=== PATIENT | female | born 1975 | race Hispanic/Latino ===

== ENCOUNTER 2025-07-20 18:53 | Inpatient (IN) | payer BC ==
[2025-07-20] MEDS ORDERED: Cefepime 2 GM VIAL ONE (19:49)
[2025-07-20 19:57] LABS: ALT (SGPT) 8 U/L (Less than 34); AST (SGOT) 12 U/L (11-34); Albumin 4.0 g/dL (3.1-4.5); Alkaline Phosphatase 99 U/L (40-110); Anion Gap 16 mmol/L (10-20); BUN (Urea Nitrogen) 11 mg/dL (9.8-20.1); Bilirubin, Total 0.5 mg/dL (0.3-1.2); Calc. Creatinine Clearance 0 mL/min (70-130); Calcium 9.1 mg/dL (7.8-10.44); Carbon Dioxide 21 mmol/L (22-29); Chloride 101 mmol/L (98-107); Globulin 3.0 g/dL (2.4-3.5); Glucose 139 mg/dL (70-105); Potassium 3.0 mmol/L (3.5-5.1); Sodium 135 mmol/L (136-145)
[2025-07-20] MEDS ORDERED: Acetaminophen 325 MG TAB ONE (19:59)
[2025-07-20 20:03] LABS: Hematocrit 20.0 % (36.0-47.0); Hemoglobin 6.6 g/dL (12.0-16.0); Mean Corpuscular Hemoglobin 30.7 pg (27.0-31.0); Mean Corpuscular Volume 93.0 fL (78.0-98.0); Platelet Count 20 10x3/uL (130-400); Red Blood Cell (RBC) Count 2.15 mill/uL (4.20-5.40); White Blood Cell (WBC) Count 0.78 10x3/uL (4.8-10.8)
[2025-07-20] MEDS ORDERED: Potassium Chloride 20 MEQ (100 mL) BAG ONE (20:08)
[2025-07-20 20:22] LABS: Anisocytosis SLIGHT = 6-15 cells HPF (0-5); Plasma Cells 2 % (0-0); Platelet Adequacy Comment Platelets Decreased; Polychromasia SLIGHT = 2-3 cells HPF (0-2); Smudge Cells 0.9 %; Stomatocytes SLIGHT = 2-5 cells HPF (0-1)
[2025-07-20 20:33] LABS: Bacteria/HPF None Seen HPF (None Seen); CAUTI Indications for Culture Immunosuppressed; Glucose, Urine (Dipstick) Normal (Negative); Leukocyte Negative Leu/uL (Negative); Protein, Urine (Dipstick) 50 mg/dL (Neg-Trace); Specific Gravity, Urine 1.023 (1.002-1.036); WBC/HPF 0-3 HPF (0-3)
[2025-07-20 20:35] LABS: Urine Culture Reflex Yes Yes
[2025-07-20] MEDS: Vancomycin (BATCH) 2 GM Premix IVPB SCH (22:15)
[2025-07-20 22:44] LABS: Magnesium 1.7 mg/dL (1.6-2.6)
[2025-07-20 22:59] LABS: Actual Bicarbonate (HCO3v) 20.0 mEq/L (22-28); Base Excess -3.9 mEq/L (-2.0 to +3.0); Calcium, Ionized (venous) 0.98 mmol/L (1.16-1.32); Chloride (VBG) 110 mmol/L (98-106); Hematocrit-VBG 17 % (36.0-47.0); Sodium 137 mmol/L (133-146)
[2025-07-20 23:00] LABS: Hemoglobin (Hb) 5.8 g/dL (11.7-16.0); Potassium (VBG) 2.63 mmol/L (3.70-5.30)
[2025-07-21] MEDS: NS IVPB SCH (00:50)
[2025-07-21] MEDS: POTASSIUM PHOSPHATE 30 MMOL IVPB SCH (00:50)
[2025-07-21 01:11] VITALS: BMI 32.3
[2025-07-21] MEDS: Magnesium 2 GM/50 ML(in water) 2 GM in Premix 1 BAG IVPB SCH (01:55)
[2025-07-21] MEDS: NS 0.9% w/ 20 MEQ KCL 1,000 ML/1,000 ML BAG IV SCH (02:05)
[2025-07-21] MEDS ORDERED: Calcium Carbonate 500 MG ChewTAB PO PRN (05:00)
[2025-07-21] MEDS ORDERED: Acetaminophen 325 MG TAB PO PRN (05:00)
[2025-07-21] MEDS ORDERED: Vancomycin 1 GM in Premix 1 BAG IVPB SCH (09:00)
[2025-07-21] MEDS: Vancomycin 1.25 GM / NS 250 ML VIAL-2-BAG IVPB SCH (09:21)
[2025-07-21] MEDS: Senokot S 8.6-50 MG TAB PO SCH (09:21)
[2025-07-21 12:10] LABS: Hematocrit 21.2 % (36.0-47.0); Hemoglobin 6.8 g/dL (12.0-16.0); Mean Corpuscular Hemoglobin 31.1 pg (27.0-31.0); Mean Corpuscular Volume 96.8 fL (78.0-98.0); Platelet Count 18 10x3/uL (130-400); Red Blood Cell (RBC) Count 2.19 mill/uL (4.20-5.40); White Blood Cell (WBC) Count 3.46 10x3/uL (4.8-10.8)
[2025-07-21 12:39] LABS: Anion Gap 12 mmol/L (10-20); BUN (Urea Nitrogen) 5 mg/dL (9.8-20.1); Calc. Creatinine Clearance 205 mL/min (70-130); Calcium 8.4 mg/dL (7.8-10.44); Carbon Dioxide 20 mmol/L (22-29); Chloride 106 mmol/L (98-107); Glucose 102 mg/dL (70-105); Magnesium 1.9 mg/dL (1.6-2.6); Potassium 3.5 mmol/L (3.5-5.1); Sodium 134 mmol/L (136-145)
[2025-07-21 12:40] LABS: Anisocytosis SLIGHT = 6-15 cells HPF (0-5); Burr Cells SLIGHT = 2-5 cells HPF (0-1); Macrocytosis MODERATE=16-30 cells HPF (0-5); Platelet Adequacy Comment Significant Decrease; Polychromasia SLIGHT = 2-3 cells HPF (0-2); Smudge Cells 9.6 %
[2025-07-21 13:03] LABS: CRP, High Sensitivity at Bryan 8.57 mg/dL (< or = 0.5)
[2025-07-21 13:54] VITALS: BMI 32.3
[2025-07-21] MEDS: PHOS-NAK 1 PKT PACK PO SCH (14:31)
[2025-07-21] MEDS: Potassium Phosphate 30 MMOL in Sodium Chloride 0.9% 250 ML 250 ML IVPB SCH (15:30)
[2025-07-21 23:24] LABS: Hematocrit 20.8 % (36.0-47.0); Hemoglobin 6.9 g/dL (12.0-16.0); Mean Corpuscular Hemoglobin 32.1 pg (27.0-31.0); Mean Corpuscular Volume 96.7 fL (78.0-98.0); Platelet Count 41 10x3/uL (130-400); Red Blood Cell (RBC) Count 2.15 mill/uL (4.20-5.40); White Blood Cell (WBC) Count 6.71 10x3/uL (4.8-10.8)
[2025-07-21 23:37] LABS: Anion Gap 15 mmol/L (10-20); BUN (Urea Nitrogen) 6 mg/dL (9.8-20.1); Calc. Creatinine Clearance 205 mL/min (70-130); Calcium 8.7 mg/dL (7.8-10.44); Carbon Dioxide 18 mmol/L (22-29); Chloride 105 mmol/L (98-107); Glucose 90 mg/dL (70-105); Potassium 3.6 mmol/L (3.5-5.1); Sodium 134 mmol/L (136-145)
[2025-07-22] MEDS: Mupirocin 1 GM TUBE NASAL DECOLONIZATION TP SCH (03:36)
[2025-07-22] MEDS: Mupirocin 1 GM TUBE NASAL DECOLOIZATION TP SCH (13:28)
[2025-07-22 17:42] LABS: Hematocrit 25.8 % (36.0-47.0); Hemoglobin 8.4 g/dL (12.0-16.0); Mean Corpuscular Hemoglobin 31.3 pg (27.0-31.0); Mean Corpuscular Volume 96.3 fL (78.0-98.0); Platelet Count 60 10x3/uL (130-400); Red Blood Cell (RBC) Count 2.68 mill/uL (4.20-5.40); White Blood Cell (WBC) Count 10.54 10x3/uL (4.8-10.8)
[2025-07-22 17:59] LABS: Vancomycin, Random 14.5 ug/mL (See Comment)
[2025-07-22 18:01] LABS: Anisocytosis SLIGHT = 6-15 cells HPF (0-5); Burr Cells SLIGHT = 2-5 cells HPF (0-1); Nucleated RBC (Manual Ct) 1 % (0); Platelet Adequacy Comment Platelets Decreased; Polychromasia SLIGHT = 2-3 cells HPF (0-2); Smudge Cells 3.0 %
[2025-07-22 18:02] LABS: Anion Gap 14 mmol/L (10-20); BUN (Urea Nitrogen) 8 mg/dL (9.8-20.1); Calc. Creatinine Clearance 177 mL/min (70-130); Calcium 9.2 mg/dL (7.8-10.44); Carbon Dioxide 20 mmol/L (22-29); Chloride 104 mmol/L (98-107); Glucose 120 mg/dL (70-105); Magnesium 1.8 mg/dL (1.6-2.6); Potassium 3.1 mmol/L (3.5-5.1); Sodium 135 mmol/L (136-145)
[2025-07-22] MEDS: PHOS-NAK 1 PKT PACK PO SCH (20:14)
[2025-07-22] MEDS: Magnesium 2 GM/50 ML(in water) 2 GM in Premix 1 BAG IVPB SCH (23:21)
[2025-07-23 06:42] LABS: Anion Gap 11 mmol/L (10-20); BUN (Urea Nitrogen) 6 mg/dL (9.8-20.1); Calc. Creatinine Clearance 190 mL/min (70-130); Calcium 8.7 mg/dL (7.8-10.44); Carbon Dioxide 23 mmol/L (22-29); Chloride 104 mmol/L (98-107); Glucose 90 mg/dL (70-105); Potassium 3.2 mmol/L (3.5-5.1); Sodium 135 mmol/L (136-145)
[2025-07-23 06:54] LABS: Hematocrit 23.8 % (36.0-47.0); Hemoglobin 7.8 g/dL (12.0-16.0); Mean Corpuscular Hemoglobin 31.2 pg (27.0-31.0); Mean Corpuscular Volume 95.2 fL (78.0-98.0); Platelet Count 61 10x3/uL (130-400); Red Blood Cell (RBC) Count 2.50 mill/uL (4.20-5.40); White Blood Cell (WBC) Count 7.53 10x3/uL (4.8-10.8)
[2025-07-23 08:08] LABS: Anisocytosis SLIGHT = 6-15 cells HPF (0-5); Macrocytosis SLIGHT = 6-15 cells HPF (0-5); Platelet Adequacy Comment Platelets Decreased; Polychromasia SLIGHT = 2-3 cells HPF (0-2); RBC Morphology Within Normal Limits
[2025-07-23] MEDS: Vancomycin 1.25 GM / NS 250 ML VIAL-2-BAG IVPB SCH (23:15)
[2025-07-24 07:59] LABS: Hematocrit 23.6 % (36.0-47.0); Hemoglobin 7.6 g/dL (12.0-16.0); Mean Corpuscular Hemoglobin 31.1 pg (27.0-31.0); Mean Corpuscular Volume 96.7 fL (78.0-98.0); Platelet Count 83 10x3/uL (130-400); Red Blood Cell (RBC) Count 2.44 mill/uL (4.20-5.40); White Blood Cell (WBC) Count 6.74 10x3/uL (4.8-10.8)
[2025-07-24 08:06] LABS: Anion Gap 10 mmol/L (10-20); BUN (Urea Nitrogen) 7 mg/dL (9.8-20.1); Calc. Creatinine Clearance 210 mL/min (70-130); Calcium 8.8 mg/dL (7.8-10.44); Carbon Dioxide 25 mmol/L (22-29); Chloride 103 mmol/L (98-107); Glucose 92 mg/dL (70-105); Potassium 3.4 mmol/L (3.5-5.1); Sodium 135 mmol/L (136-145)
[2025-07-24] MEDS: Vancomycin 1 GM in Premix 1 BAG IVPB SCH (09:37)
[2025-07-24 10:35] LABS: Anisocytosis SLIGHT = 6-15 cells HPF (0-5); Macrocytosis SLIGHT = 6-15 cells HPF (0-5); Platelet Adequacy Comment Platelets Decreased; Polychromasia SLIGHT = 2-3 cells HPF (0-2); Schistocytes SLIGHT = 2-5 cells HPF (0-1); Smudge Cells 5.8 %; Stomatocytes SLIGHT = 2-5 cells HPF (0-1); Toxic Granulation SLIGHT
[2025-07-25 06:35] LABS: Vancomycin, Random 13.7 ug/mL (See Comment)
[2025-07-26 07:37] VITALS: BP 102/59; TEMP 98.2
== END 2025-07-26 10:55 | disposition home or self-care (01) | DRG 808 ==
LOC: ERS 18:53 → UNDOADMIN 23:25 → 2NO 23:25
PROVIDERS: ADMIT Internal Medicine; ATTEND Internal Medicine
PROC: 3E03329 Introduction of Other Anti-infective into Peripheral Vein, Percutaneous Approach (ICD-10-PCS; principal; 2025-07-20)
PROC: 3E04329 Introduction of Other Anti-infective into Central Vein, Percutaneous Approach (ICD-10-PCS; 2025-07-20)
PROC: 6A550Z2 Pheresis of Platelets, Single (ICD-10-PCS; 2025-07-21)
PROC: 30233N1 Transfusion of Nonautologous Red Blood Cells into Peripheral Vein, Percutaneous Approach (ICD-10-PCS; 2025-07-21)
DX: D70.9 Neutropenia, unspecified (principal); A41.9 Sepsis, unspecified organism; R65.20 Severe sepsis without septic shock; E87.1 Hypo-osmolality and hyponatremia; E87.20 Acidosis, unspecified; C22.9 Malignant neoplasm of liver, not specified as primary or secondary; C64.9 Malignant neoplasm of unspecified kidney, except renal pelvis; D61.810 Antineoplastic chemotherapy induced pancytopenia; G89.4 Chronic pain syndrome; E88.09 Other disorders of plasma-protein metabolism, not elsewhere classified; E83.42 Hypomagnesemia; E87.6 Hypokalemia
CPT/HCPCS: 36415; 36430; 71045; 80048; 80053; 80202; 81001; 82805; 83605; 83735; 83880; 84100; 84484; 85025; 86141; 86850; 86900; 86901; 87040; 87081; 87086; 93005; 94760; 96365; 96366; 96367; J0692; J3373; J3475; J3480; J7050; P9016; P9035

== ENCOUNTER 2025-08-10 12:32 | Inpatient (IN) | payer BC ==
[2025-08-10] MEDS ORDERED: Cefepime 2 GM VIAL ONE (13:16)
[2025-08-10] MEDS ORDERED: Acetaminophen 325 MG TAB ONE (13:16)
[2025-08-10 13:48] LABS: #Basophils Less than 0.03 10x3/uL (0.0-0.2); #Eosinophils Less than 0.03 10x3/uL (0.0-0.7); #Monocytes 0.16 10x3/uL (0.11-0.59); #Neutrophils Less than 0.03 10x3/uL (1.40-6.50); %Basophils 0.0 % (0.0-1.0); %Eosinophils 0.0 % (0.0-10.0); %Lymphocytes 45.7 % (21.0-51.0); %Monocytes 45.7 % (0.0-10.0); %Neutrophils 5.7 % (42.0-75.0); Hematocrit 18.9 % (36.0-47.0); Hemoglobin 6.4 g/dL (12.0-16.0); INR-International Normal Ratio 1.6; Mean Corpuscular Hemoglobin 31.5 pg (27.0-31.0); Mean Corpuscular Volume 94.1 fL (78.0-98.0); Platelet Count 9 10x3/uL (130-400); Prothrombin Time 19.3 sec (12.0-14.7); Red Blood Cell (RBC) Count 2.03 mill/uL (4.20-5.40); White Blood Cell (WBC) Count 0.35 10x3/uL (4.8-10.8)
[2025-08-10 13:49] LABS: PTT 51.5 sec (22.9-36.1)
[2025-08-10 13:56] LABS: ALT (SGPT) 10 U/L (Less than 34); AST (SGOT) 24 U/L (11-34); Albumin 3.9 g/dL (3.1-4.5); Alkaline Phosphatase 76 U/L (40-110); Anion Gap 13 mmol/L (10-20); BUN (Urea Nitrogen) 13 mg/dL (9.8-20.1); Bilirubin, Total 1.0 mg/dL (0.3-1.2); Calc. Creatinine Clearance 0 mL/min (70-130); Calcium 8.8 mg/dL (7.8-10.44); Carbon Dioxide 22 mmol/L (22-29); Chloride 100 mmol/L (98-107); Globulin 3.0 g/dL (2.4-3.5); Glucose 111 mg/dL (70-105); Potassium 2.9 mmol/L (3.5-5.1); Sodium 132 mmol/L (136-145)
[2025-08-10 14:16] LABS: Bacteria/HPF None Seen HPF (None Seen); CAUTI Indications for Culture Dysuria,urgency,freq; Glucose, Urine (Dipstick) 30 mg/dL (Negative); Leukocyte Negative Leu/uL (Negative); Protein, Urine (Dipstick) 200 mg/dL (Neg-Trace); RBC/HPF Greater than 50 HPF (0-3); Specific Gravity, Urine 1.022 (1.002-1.036)
[2025-08-10 14:20] LABS: Urine Culture Reflex No No
[2025-08-10] MEDS ORDERED: Calcium Carbonate 500 MG ChewTAB PO PRN (16:06)
[2025-08-10] MEDS ORDERED: Acetaminophen 325 MG TAB PO PRN (16:06)
[2025-08-10 18:17] LABS: Magnesium 1.7 mg/dL (1.6-2.6)
[2025-08-10] MEDS: VANCOMYCIN 1.75 GM/350 ML Premix BAG IVPB SCH (18:27)
[2025-08-10] MEDS: NS 0.9% w/ 20 MEQ KCL 1,000 ML/1,000 ML BAG IV SCH (18:34)
[2025-08-10 18:40] VITALS: BMI 30.6
[2025-08-10] MEDS ORDERED: Vancomycin 1 GM in Sodium Chloride 0.9% 250 ML 300 ML IVPB SCH (21:00)
[2025-08-10] MEDS: Famotidine 20 MG TAB PO SCH (21:56)
[2025-08-10] MEDS: PHOS-NAK 1 PKT PACK PO SCH (21:56)
[2025-08-10] MEDS: Ondansetron PF 4 MG/2 ML Vial IVP PRN (22:05)
[2025-08-11] MEDS: Vancomycin 1 GM in Premix 1 BAG IVPB SCH (01:33)
[2025-08-11 05:34] LABS: Vancomycin, Random 20.4 ug/mL (See Comment)
[2025-08-11 05:37] LABS: Anion Gap 9 mmol/L (10-20); BUN (Urea Nitrogen) 9 mg/dL (9.8-20.1); Calc. Creatinine Clearance 162 mL/min (70-130); Calcium 8.4 mg/dL (7.8-10.44); Carbon Dioxide 24 mmol/L (22-29); Chloride 105 mmol/L (98-107); Glucose 93 mg/dL (70-105); Potassium 3.7 mmol/L (3.5-5.1); Sodium 134 mmol/L (136-145)
[2025-08-11 05:49] LABS: #Basophils Less than 0.03 10x3/uL (0.0-0.2); #Eosinophils Less than 0.03 10x3/uL (0.0-0.7); #Monocytes 0.32 10x3/uL (0.11-0.59); #Neutrophils 0.32 10x3/uL (1.40-6.50); %Basophils 1.1 % (0.0-1.0); %Eosinophils 0.0 % (0.0-10.0); %Lymphocytes 22.0 % (21.0-51.0); %Monocytes 35.2 % (0.0-10.0); %Neutrophils 35.1 % (42.0-75.0); Hematocrit 17.2 % (36.0-47.0); Hemoglobin 5.8 g/dL (12.0-16.0); Mean Corpuscular Hemoglobin 31.7 pg (27.0-31.0); Mean Corpuscular Volume 94.0 fL (78.0-98.0); Platelet Count 33 10x3/uL (130-400); Red Blood Cell (RBC) Count 1.83 mill/uL (4.20-5.40); White Blood Cell (WBC) Count 0.91 10x3/uL (4.8-10.8)
[2025-08-11] MEDS: Vancomycin 1.25 GM / NS 250 ML VIAL-2-BAG IVPB SCH (12:27)
[2025-08-11] MEDS ORDERED: Loperamide HCl 1 MG/7.5 ML UDCUP PO PRN (16:05)
[2025-08-11 17:05] LABS: Iron 79 ug/dL (50-170); Iron Binding Capacity, Total 115 mcg/dL (265-497)
[2025-08-11 19:57] LABS: Hematocrit 21.2 % (36.0-47.0); Hemoglobin 7.0 g/dL (12.0-16.0); Platelet Count 23 10x3/uL (130-400)
[2025-08-12 05:53] LABS: Hematocrit 23.1 % (36.0-47.0); Hemoglobin 7.8 g/dL (12.0-16.0); Mean Corpuscular Hemoglobin 30.5 pg (27.0-31.0); Mean Corpuscular Volume 90.2 fL (78.0-98.0); Platelet Count 24 10x3/uL (130-400); Red Blood Cell (RBC) Count 2.56 mill/uL (4.20-5.40); White Blood Cell (WBC) Count 4.27 10x3/uL (4.8-10.8)
[2025-08-12 05:54] LABS: ALT (SGPT) Less than 7 U/L (Less than 34); AST (SGOT) 15 U/L (11-34); Albumin 3.3 g/dL (3.1-4.5); Alkaline Phosphatase 68 U/L (40-110); Anion Gap 13 mmol/L (10-20); BUN (Urea Nitrogen) 8 mg/dL (9.8-20.1); Bilirubin, Total 1.9 mg/dL (0.3-1.2); Calc. Creatinine Clearance 178 mL/min (70-130); Calcium 8.7 mg/dL (7.8-10.44); Carbon Dioxide 19 mmol/L (22-29); Chloride 107 mmol/L (98-107); Globulin 3.3 g/dL (2.4-3.5); Glucose 100 mg/dL (70-105); Magnesium 1.7 mg/dL (1.6-2.6); Potassium 3.1 mmol/L (3.5-5.1); Sodium 136 mmol/L (136-145)
[2025-08-12 06:22] LABS: Anisocytosis SLIGHT = 6-15 cells HPF (0-5); Platelet Adequacy Comment Platelets Decreased; Polychromasia SLIGHT = 2-3 cells HPF (0-2)
[2025-08-12] MEDS: Magnesium 2 GM/50 ML(in water) 2 GM in Premix 1 BAG IVPB SCH (08:58)
[2025-08-12 14:27] LABS: Potassium 3.1 mmol/L (3.5-5.1)
[2025-08-12 16:11] VITALS: BMI 30.6
[2025-08-13 06:05] LABS: #Basophils 0.03 10x3/uL (0.0-0.2); #Eosinophils Less than 0.03 10x3/uL (0.0-0.7); #Monocytes 0.53 10x3/uL (0.11-0.59); #Neutrophils 2.93 10x3/uL (1.40-6.50); %Basophils 0.8 % (0.0-1.0); %Eosinophils 0.0 % (0.0-10.0); %Lymphocytes 7.0 % (21.0-51.0); %Monocytes 13.8 % (0.0-10.0); %Neutrophils 76.6 % (42.0-75.0); Hematocrit 23.0 % (36.0-47.0); Hemoglobin 7.8 g/dL (12.0-16.0); Mean Corpuscular Hemoglobin 31.2 pg (27.0-31.0); Mean Corpuscular Volume 92.0 fL (78.0-98.0); Platelet Count 19 10x3/uL (130-400); Red Blood Cell (RBC) Count 2.50 mill/uL (4.20-5.40); White Blood Cell (WBC) Count 3.83 10x3/uL (4.8-10.8)
[2025-08-13 06:10] LABS: Anion Gap 14 mmol/L (10-20); BUN (Urea Nitrogen) 7 mg/dL (9.8-20.1); Calc. Creatinine Clearance 182 mL/min (70-130); Calcium 8.8 mg/dL (7.8-10.44); Carbon Dioxide 21 mmol/L (22-29); Chloride 107 mmol/L (98-107); Glucose 88 mg/dL (70-105); Magnesium 2.1 mg/dL (1.6-2.6); Potassium 3.6 mmol/L (3.5-5.1); Sodium 138 mmol/L (136-145)
[2025-08-14 06:28] LABS: Hematocrit 22.1 % (36.0-47.0); Hemoglobin 7.3 g/dL (12.0-16.0); Mean Corpuscular Hemoglobin 30.5 pg (27.0-31.0); Mean Corpuscular Volume 92.5 fL (78.0-98.0); Platelet Count 22 10x3/uL (130-400); Red Blood Cell (RBC) Count 2.39 mill/uL (4.20-5.40); White Blood Cell (WBC) Count 3.83 10x3/uL (4.8-10.8)
[2025-08-14 06:39] LABS: Vancomycin, Random 18.7 ug/mL (See Comment)
[2025-08-14 06:44] LABS: Anisocytosis SLIGHT = 6-15 cells HPF (0-5); Platelet Adequacy Comment Platelets Decreased; Polychromasia SLIGHT = 2-3 cells HPF (0-2)
[2025-08-14 06:46] LABS: Anion Gap 12 mmol/L (10-20); BUN (Urea Nitrogen) 6 mg/dL (9.8-20.1); Calc. Creatinine Clearance 191 mL/min (70-130); Carbon Dioxide 24 mmol/L (22-29); Chloride 107 mmol/L (98-107); Potassium 3.4 mmol/L (3.5-5.1); Sodium 140 mmol/L (136-145)
[2025-08-14 06:47] LABS: Calcium 8.9 mg/dL (7.8-10.44); Glucose 93 mg/dL (70-105)
[2025-08-15 16:36] VITALS: BP 106/63; TEMP 98.6
== END 2025-08-15 16:20 | disposition home or self-care (01) | DRG 871 ==
LOC: ERS 12:32 → MSONC 16:01
PROVIDERS: ADMIT Family Medicine; ATTEND Hospitalist
PROC: 30233N1 Transfusion of Nonautologous Red Blood Cells into Peripheral Vein, Percutaneous Approach (ICD-10-PCS; principal; 2025-08-10)
PROC: 6A550Z2 Pheresis of Platelets, Single (ICD-10-PCS; 2025-08-10)
PROC: 3E03329 Introduction of Other Anti-infective into Peripheral Vein, Percutaneous Approach (ICD-10-PCS; 2025-08-10)
PROC: 0D9670Z Drainage of Stomach with Drainage Device, Via Natural or Artificial Opening (ICD-10-PCS; 2025-08-10)
PROC: 3E04329 Introduction of Other Anti-infective into Central Vein, Percutaneous Approach (ICD-10-PCS; 2025-08-10)
DX: A41.59 Other Gram-negative sepsis (principal); D61.810 Antineoplastic chemotherapy induced pancytopenia; C64.9 Malignant neoplasm of unspecified kidney, except renal pelvis; E87.1 Hypo-osmolality and hyponatremia; C22.4 Other sarcomas of liver; N39.0 Urinary tract infection, site not specified; R65.20 Severe sepsis without septic shock; G89.4 Chronic pain syndrome; E87.6 Hypokalemia; E83.39 Other disorders of phosphorus metabolism; R19.7 Diarrhea, unspecified; T45.1X5A Adverse effect of antineoplastic and immunosuppressive drugs, initial encounter; Z79.01 Long term (current) use of anticoagulants; Z79.899 Other long term (current) drug therapy; Z86.711 Personal history of pulmonary embolism
CPT/HCPCS: 36415; 36430; 71045; 80048; 80053; 80202; 81001; 82728; 83540; 83550; 83605; 83615; 83735; 84100; 84145; 85025; 85046; 85610; 85730; 86850; 86900; 86901; 87040; 87077; 87081; 87086; 87186; 87428; 93005; 96361; 96365; 96366; 96367; J0692; J3373; J3375; J3475; J3480; J7050; P9016; P9035

== ENCOUNTER 2025-09-02 16:28 | Inpatient (IN) | payer BC ==
[2025-09-02 18:09] LABS: Hematocrit 18.7 % (36.0-47.0); Hemoglobin 6.4 g/dL (12.0-16.0); Mean Corpuscular Hemoglobin 30.8 pg (27.0-31.0); Mean Corpuscular Volume 89.9 fL (78.0-98.0); Platelet Count 6 10x3/uL (130-400); Red Blood Cell (RBC) Count 2.08 mill/uL (4.20-5.40); White Blood Cell (WBC) Count 4.53 10x3/uL (4.8-10.8)
[2025-09-02 18:12] LABS: INR-International Normal Ratio 1.1; Prothrombin Time 14.7 sec (12.0-14.7)
[2025-09-02 18:13] LABS: ALT (SGPT) 7 U/L (Less than 34); AST (SGOT) 14 U/L (11-34); Albumin 3.7 g/dL (3.1-4.5); Alkaline Phosphatase 85 U/L (40-110); Anion Gap 16 mmol/L (10-20); BUN (Urea Nitrogen) 15 mg/dL (9.8-20.1); Bilirubin, Total 1.0 mg/dL (0.3-1.2); Calc. Creatinine Clearance 0 mL/min (70-130); Calcium 9.4 mg/dL (7.8-10.44); Carbon Dioxide 24 mmol/L (22-29); Chloride 100 mmol/L (98-107); Globulin 3.6 g/dL (2.4-3.5); Glucose 117 mg/dL (70-105); Potassium 2.8 mmol/L (3.5-5.1); Sodium 137 mmol/L (136-145)
[2025-09-02 18:13] LABS: PTT 37.7 sec (22.9-36.1)
[2025-09-02 18:31] LABS: Anisocytosis SLIGHT = 6-15 cells HPF (0-5); Ovalocytes SLIGHT = 2-5 cells HPF (0-1); Platelet Adequacy Comment Significant Decrease; Polychromasia SLIGHT = 2-3 cells HPF (0-2); Smudge Cells 2.0 %
[2025-09-02] MEDS ORDERED: Senokot S 8.6-50 MG TAB PO PRN (20:47)
[2025-09-02] MEDS ORDERED: Acetaminophen 325 MG TAB PO PRN (20:50)
[2025-09-02] MEDS ORDERED: Cefepime 2 GM VIAL ONE (20:58)
[2025-09-02 21:19] LABS: CAUTI Indications for Culture Dysuria,urgency,freq; Glucose, Urine (Dipstick) Normal (Negative); Leukocyte Negative Leu/uL (Negative); Protein, Urine (Dipstick) 30 mg/dL (Neg-Trace); RBC/HPF Greater than 50 HPF (0-3); Specific Gravity, Urine 1.025 (1.002-1.036)
[2025-09-02 21:20] LABS: Bacteria/HPF Rare-Few HPF (None Seen)
[2025-09-02 21:21] LABS: Urine Culture Reflex Yes Yes
[2025-09-03 00:48] VITALS: BMI 31.6
[2025-09-03] MEDS: Sodium Bicarbonate Tab 325 MG TAB PO SCH (01:18)
[2025-09-03] MEDS: Potassium Bicarbonate/Cit Ac 20 MEQ TAB PO SCH (01:19)
[2025-09-03] MEDS: Famotidine 20 MG TAB PO SCH (01:24)
[2025-09-03 05:41] LABS: Hematocrit 20.7 % (36.0-47.0); Hemoglobin 6.8 g/dL (12.0-16.0); Mean Corpuscular Hemoglobin 30.2 pg (27.0-31.0); Mean Corpuscular Volume 92.0 fL (78.0-98.0); Platelet Count 47 10x3/uL (130-400); Red Blood Cell (RBC) Count 2.25 mill/uL (4.20-5.40); White Blood Cell (WBC) Count 6.01 10x3/uL (4.8-10.8)
[2025-09-03 05:50] LABS: Anion Gap 15 mmol/L (10-20); BUN (Urea Nitrogen) 11 mg/dL (9.8-20.1); Calc. Creatinine Clearance 191 mL/min (70-130); Calcium 8.7 mg/dL (7.8-10.44); Carbon Dioxide 22 mmol/L (22-29); Chloride 102 mmol/L (98-107); Glucose 93 mg/dL (70-105); Potassium 3.4 mmol/L (3.5-5.1); Sodium 136 mmol/L (136-145)
[2025-09-03 06:10] LABS: Platelet Adequacy Comment Platelets Decreased; Polychromasia SLIGHT = 2-3 cells HPF (0-2); RBC Morphology Within Normal Limits; Smudge Cells 5.9 %; Toxic Granulation SLIGHT
[2025-09-03] MEDS: Ondansetron PF 4 MG/2 ML Vial IVP PRN (10:37)
[2025-09-03] MEDS: Potassium Chloride 20 MEQ in Premix 1 BAG IVPB SCH (16:48)
[2025-09-04 06:38] LABS: Anion Gap 9 mmol/L (10-20); BUN (Urea Nitrogen) 8 mg/dL (9.8-20.1); Calc. Creatinine Clearance 206 mL/min (70-130); Calcium 9.0 mg/dL (7.8-10.44); Carbon Dioxide 25 mmol/L (22-29); Chloride 107 mmol/L (98-107); Glucose 91 mg/dL (70-105); Magnesium 1.6 mg/dL (1.6-2.6); Potassium 3.9 mmol/L (3.5-5.1); Sodium 137 mmol/L (136-145)
[2025-09-04 06:54] LABS: #Basophils Less than 0.03 10x3/uL (0.0-0.2); #Eosinophils Less than 0.03 10x3/uL (0.0-0.7); #Monocytes 0.53 10x3/uL (0.11-0.59); #Neutrophils 2.99 10x3/uL (1.40-6.50); %Basophils 0.5 % (0.0-1.0); %Eosinophils 0.0 % (0.0-10.0); %Lymphocytes 10.8 % (21.0-51.0); %Monocytes 13.1 % (0.0-10.0); %Neutrophils 73.6 % (42.0-75.0); Hematocrit 20.3 % (36.0-47.0); Hemoglobin 6.7 g/dL (12.0-16.0); Mean Corpuscular Hemoglobin 29.5 pg (27.0-31.0); Mean Corpuscular Volume 89.4 fL (78.0-98.0); Platelet Count 17 10x3/uL (130-400); Red Blood Cell (RBC) Count 2.27 mill/uL (4.20-5.40); White Blood Cell (WBC) Count 4.06 10x3/uL (4.8-10.8)
[2025-09-04 16:46] VITALS: BMI 31.6
[2025-09-04] MEDS: cefTRIAXone\\ROCEPHIN 2 GM in Sodium Chloride 0.9% 100 ML IVPB SCH (20:50)
[2025-09-04 21:15] LABS: Hematocrit 22.5 % (36.0-47.0); Hemoglobin 7.5 g/dL (12.0-16.0)
[2025-09-05 06:42] LABS: Hematocrit 22.3 % (36.0-47.0); Hemoglobin 7.2 g/dL (12.0-16.0); Mean Corpuscular Hemoglobin 28.8 pg (27.0-31.0); Mean Corpuscular Volume 89.2 fL (78.0-98.0); Platelet Count 13 10x3/uL (130-400); Red Blood Cell (RBC) Count 2.50 mill/uL (4.20-5.40); White Blood Cell (WBC) Count 3.95 10x3/uL (4.8-10.8)
[2025-09-05 06:43] LABS: Anion Gap 13 mmol/L (10-20); BUN (Urea Nitrogen) 7 mg/dL (9.8-20.1); Calc. Creatinine Clearance 191 mL/min (70-130); Calcium 9.2 mg/dL (7.8-10.44); Carbon Dioxide 23 mmol/L (22-29); Chloride 105 mmol/L (98-107); Glucose 91 mg/dL (70-105); Potassium 3.7 mmol/L (3.5-5.1); Sodium 137 mmol/L (136-145)
[2025-09-05 06:56] LABS: Platelet Adequacy Comment Significant Decrease; RBC Morphology Within Normal Limits; Smudge Cells 3.0 %
[2025-09-05] MEDS: Mupirocin 1 GM TUBE TP SCH (09:50)
[2025-09-06 06:02] LABS: Hematocrit 21.7 % (36.0-47.0); Hemoglobin 7.1 g/dL (12.0-16.0); Mean Corpuscular Hemoglobin 29.3 pg (27.0-31.0); Mean Corpuscular Volume 89.7 fL (78.0-98.0); Platelet Count 26 10x3/uL (130-400); Red Blood Cell (RBC) Count 2.42 mill/uL (4.20-5.40); White Blood Cell (WBC) Count 3.83 10x3/uL (4.8-10.8)
[2025-09-06 06:43] LABS: Anisocytosis SLIGHT = 6-15 cells HPF (0-5); Dohle Bodies SLIGHT; Macrocytosis SLIGHT = 6-15 cells HPF (0-5); Platelet Adequacy Comment Significant Decrease; Polychromasia SLIGHT = 2-3 cells HPF (0-2); Smudge Cells 1.0 %; Toxic Granulation SLIGHT
[2025-09-06 12:01] VITALS: BP 101/68; TEMP 98.6
== END 2025-09-06 11:45 | disposition home or self-care (01) | DRG 808 ==
LOC: ERS 16:28 → SURG A 20:08
PROVIDERS: ADMIT Internal Medicine; ATTEND Hospitalist
PROC: 3E04329 Introduction of Other Anti-infective into Central Vein, Percutaneous Approach (ICD-10-PCS; principal; 2025-09-02)
PROC: 30233N1 Transfusion of Nonautologous Red Blood Cells into Peripheral Vein, Percutaneous Approach (ICD-10-PCS; 2025-09-02)
PROC: 6A551Z2 Pheresis of Platelets, Multiple (ICD-10-PCS; 2025-09-03)
DX: D61.810 Antineoplastic chemotherapy induced pancytopenia (principal); A41.51 Sepsis due to Escherichia coli [E. coli]; R65.21 Severe sepsis with septic shock; A41.59 Other Gram-negative sepsis; C22.8 Malignant neoplasm of liver, primary, unspecified as to type; C79.00 Secondary malignant neoplasm of unspecified kidney and renal pelvis; N39.0 Urinary tract infection, site not specified; D84.9 Immunodeficiency, unspecified; R04.0 Epistaxis; G89.29 Other chronic pain; T45.1X5A Adverse effect of antineoplastic and immunosuppressive drugs, initial encounter; E87.6 Hypokalemia; B96.20 Unspecified Escherichia coli [E. coli] as the cause of diseases classified elsewhere; B96.4 Proteus (mirabilis) (morganii) as the cause of diseases classified elsewhere; R31.9 Hematuria, unspecified; Z86.711 Personal history of pulmonary embolism; Z79.01 Long term (current) use of anticoagulants
CPT/HCPCS: 36415; 36430; 80048; 80053; 81001; 83605; 83735; 84484; 85025; 85610; 85730; 86850; 86900; 86901; 87040; 87077; 87086; 87186; 93005; 96365; J0692; J0696; J2405; J3480; J7030; P9016; P9035